=== PATIENT | male | born 1955 | race Caucasian/White ===

== ENCOUNTER 2016-08-26 13:43 | Emergency (ER) | payer OTHER ==
[~2016-08-26] VITALS: Ht 182.9 cm; Wt 114.4 kg
[2016-08-26 13:48] VITALS: BP 114/76; PULSE 90; RESP 15; O2SAT 98
[2016-08-26 14:20] LABS: BASOPHILS % (AUTO) 0.6 % (0-3); EOSINOPHILS % (AUTO) 2.6 % (0-5); MONOCYTES % (AUTO) 6.8 % (4-12); Mean Corpuscular Hemoglobin 31.8 pg (27.0-35.0); Mean Corpuscular Volume 92.4 fL (81-100); NEUTROPHILS % (AUTO) 68.1 % (40-74); Platelet Count 250 bil/L (150-400)
[2016-08-26 15:08] VITALS: BP 137/87; PULSE 87; RESP 18; O2SAT 98
--- NOTE | 2016-08-26 15:10 | ED.REPORT ---
HPI-General Illness Date of Service Aug 26, 2016 ED Provider: Herman Sarabia MD Patient is a 61 year old male with a history of type 2 diabetes mellitus and previous remote brain aneurysm who presents to the ED with lightheadedness that began 1 hour prior to arrival. Patient was at work when his symptoms began. Associated symptoms include dizziness, diaphoresis, SOB, "tunnel vision" and pallor. Patient denies any symptoms prior to symptoms onset 1 hour ago. Current medication list includes 10 units of insulin per day, metformin and glyburide. Patient did not take his insulin today. He has been unable to take simvastatin, metformin or glyburide for the past 4 days due to running out. He denies any chest pain. He has been more thirsty than normal lately and has been urinating more than normal. thinks that he may be dehydrated. Sx worse with standing up quickly. Nursing Notes Stated Complaint: LIGHT HEADED Chief Complaint: General Complaint Nursing Notes Reviewed: Yes Allergies: Coded Allergies: No Known Allergies (Unverified , 08/26/16) General Time Seen by MD: 15:07 Chief Complaint Other (Lightheadedness) Hx Obtained From: Patient Arrived By: Walk-in Sudden in Onset?: No Onset Occurred: 1 - 4 hours ago Symptom Duration: Since onset Associated with: Reports: Diaphoresis, Dizziness, Shortness of breath, Vision change, Denies: Chest pain, Syncope Additional Notes: Pale Pertinent Negative: Pt denies other symptoms Recent Healthcare: No recent doctor visit, No recent hospitalization Past Medical History Past Surgical History Brain aneurysm repair Social History Other Social History: Good social support, , Local resident Ambulatory Status Independent Review of Systems Tunnel vision Full Review of Systems Respiratory: Reports: Shortness of breath Cardiovascular: Denies: Chest pain Skin: Reports Diaphoresis Neurologic: Reports: Dizziness, Lightheaded Complete sys rev & neg: except as marked. Physical Exam Vital Signs Vital Signs Date Time Temp Pulse Resp B/P Pulse Ox O2 Delivery O2 Flow Rate FiO2 08/26/16 18:57 36.9 70 18 152/90 96 Room Air 08/26/16 17:45 78 19 97 Room Air 08/26/16 16:13 78 15 149/100 97 Room Air 08/26/16 15:08 87 18 137/87 98 Room Air 08/26/16 13:48 36.9 90 15 114/76 98 Room Air Initial VS: Reviewed Neck: Supple, Non-tender, Full range of motion Skin: Warm, Dry, No cyanosis Psychiatric: Mood/affect normal, Behavior normal, Normal thought content General/Constitutional: Awake, Alert, No acute distress, Well appearing, Well developed Head / Eyes: Atraumatic, Normocephalic, PERRL ENT: Atraumatic, Airway patent Mouth: Positive: Mucous membranes dry Respiratory / Chest: Atraumatic, Breath sounds NL, Breath sounds = bilat, No respiratory distress Cardiovascular: Heart rate NL, Regular rhythm, Heart sounds NL, No gallop, No murmurs, No rubs Abdomen: Atraumatic, Soft, Non-tender Upper Extremities Upper Extremity / MS: Atraumatic, Inspection NL, Neurologic intact, Vascular intact Lower Extremity / Pelvis / MS: Atraumatic, Inspection NL, Neurologic intact, Vascular intact, No edema LOWER EXTREMITIES: No calf swelling or tenderness Neurologic: Oriented X3, Speech NL, No motor deficits, No sensory deficits, CN II - XII intact, Reflexes equal bilat NEURO: No pronator drift Interpretation & Diagnostics Lab Results Interpretation Result Diagram: 08/26/16 1408 08/26/16 1408 Test 08/26/16 14:08 08/26/16 15:45 08/26/16 16:05 White Blood Count 9.9th/mm3 (3.8-10.1) Red Blood Count 4.62mil/mm3 (4.40-5.80) Hemoglobin 14.7g/dL (13.8-17.2) Hematocrit 42.7% (41.0-50.0) Mean Corpuscular Volume 92.4fL (81-100) Mean Corpuscular Hemoglobin 31.8pg (27.0-35.0) Mean Corpuscular Hemoglobin Concent 34.4% (32.0-37.0) Red Cell Distribution Width 12.1% (12.3-15.4) Platelet Count 250bil/L (150-400) Neutrophils (%) (Auto) 68.1% (40-74) Lymphocytes (%) (Auto) 21.6% (14-46) Monocytes (%) (Auto) 6.8% (4-12) Eosinophils (%) (Auto) 2.6% (0-5) Basophils (%) (Auto) 0.6% (0-3) Sodium Level 134mEq/L (134-144) Potassium Level 4.8mEq/L (3.5-5.2) Chloride Level 97mEq/L (97-108) Carbon Dioxide Level 19mmol/L (18-29) Blood Urea Nitrogen 26mg/dL (8-27) Creatinine 1.08mg/dL (0.76-1.27) Estimat Glomerular Filtration Rate 74mL/min (>59) Glucose Level 543mg/dL (60-99) Calcium Level 9.6mg/dL (8.5-10.1) Total Bilirubin 0.2mg/dL (0.0-1.2) Aspartate Amino Transf (AST/SGOT) 21U/L (0-50) Alanine Aminotransferase (ALT/SGPT) 25U/L (0-44) Alkaline Phosphatase 85U/L (25-160) Total Protein 6.9g/dL (6.4-8.4) Albumin 4.1g/dL (3.4-5.0) Hold Wallace Top Tube Received (Received) Troponin T < 0.010ug/L (0.0-0.011) Hold Urine Received (Received) Point of Care Testing: Troponin normal ECG Interpretation ECG Interpretation: Sinus rhythm 84 Left axis deviation Incomplete LBBB No t wave abnormalities No prior for comparison 1528 Time: 14:28 Interpreted by: ED physician Re-Eval/Medical Decision Med Decision/Clinical Course Patient is a 61 year old male with a history of type 2 diabetes mellitus and previous remote brain aneurysm who presents to the ED with lightheadedness that began 1 hour prior to arrival. Patient was at work when his symptoms began. Associated symptoms include dizziness, diaphoresis, SOB, "tunnel vision" and pallor. Patient denies any symptoms prior to symptoms onset 1 hour ago. Current medication list includes 10 units of insulin per day, metformin and glyburide. Patient did not take his insulin today. He has been unable to take simvastatin, metformin or glyburide for the past 4 days due to running out. He denies any chest pain. He has been more thirsty than normal lately and has been urinating more than normal. thinks that he may be dehydrated. Sx worse with standing up quickly. Here in ED pt is afebrile with stable VS. Appears slightly dehydrated. Clinically positive orthostatic vital signs. Pt was treated with the below medications: 2 IV fluids 20 units of insulin LABS CBC unremarkable CMP unremarkable except glucose 533 Negative Troponin EKG Sinus rhythm 84 Left axis deviation Incomplete LBBB No t wave abnormalities No prior for comparison Overall presentation seems consistent with dehydration in the setting of noncompliance with his diabetes regimen causing increased hyperglycemia and osmotic diuresis in the setting of very high temperatures outside as well. After receiving IV insulin and fluids the patient's hyperglycemia significantly improved. He was able to tolerate PO and reported feeling much better. EKG demonstrates no acute ischemic changes and initial screening troponin is negative. He has good renal function and no significant electrolyte abnormalities. Presentation not consistent with intracranial hemorrhage or stroke. I feel that the patient is appropriate for discharge. He is now filled his diabetes medications and will start taking them again. He is advised to follow-up first thing next week with his primary care physician and keep a log of his blood sugars. Prior to discharge follow-up and return precautions were reviewed in detail with the patient who verbalized understanding and agreement with the plan. The patient was discharged in stable condition. Time of Eval: 17:23 Patient Status: Condition improved Re-Evaluation/Progress Note: Patient is rechecked. BG has improved following 20 units of insulin. He is informed of his results and diagnosis. He understands and agrees with the plan to discharge with follow up. Counseled Regarding: Diagnosis, Lab results, Need for follow-up, When/why to return to ED Discharge & Departure Primary Impression: Hyperglycemia Additional Impressions: Dehydration Lightheadedness Dizziness Disposition: Home Discharge Condition All VS Reviewed: Yes Condition: Improved Patient Instructions: Diabetic Hyperglycemia (ED) Additional Instructions: Thank you for seeking care at emergency room. It is difficult for us to make definitive diagnoses in the ED but we believe that the likely cause of your symptoms is hyperglycemia. Our primary goal today in the ED was to evaluate you for any life-threatening conditions. Your evaluation was reassuring. Continue to take home medications as prescribed including insulin and metformin. You should follow-up with your primary doctor in the next week. You should return to the ED immediately if you develop high fever, vomiting, cough, shortness of breath, chest pain, lightheadedness, weakness or any other concerning signs or symptoms. Thank you for letting us partake in your care today. Referrals: Carleen Dutta MD (PCP) Scribe Attestation Portions of this note were transcribed by Carlos Sofia. I, Dr. Sarabia personally performed the history, physical exam and medical decision-making; I reviewed and confirmed the accuracy of the information in the transcribed note. Signed by: Richardson Carrizales, 08/26/16 1830. copies to: Carleen Dutta MD, Beck O MD Aug 26, 2016 15:10 CARLOS SOFIA Aug 26, 2016 15:20
[2016-08-26] MEDS ORDERED: 0.9% Sodium Chloride 1,000 ML IV ONE (15:25)
[2016-08-26] MEDS ORDERED: (U-500) Insulin Regluar, Human 500 Unit/mL Syringe SUBQ STA ×2 (15:25→17:22)
[2016-08-26] MEDS ORDERED: Insulin Human REGular-Omnicell 100 Unit/mL SUBQ ONE ×2 (15:40→17:40)
[2016-08-26 16:13] VITALS: BP 149/100; PULSE 78; RESP 15; O2SAT 97
[2016-08-26 17:45] VITALS: PULSE 78; RESP 19; O2SAT 97
[2016-08-26 18:57] VITALS: BP 152/90; PULSE 70; RESP 18; O2SAT 96
== END 2016-08-26 18:59 | disposition home or self-care (01) ==
LOC: SED 13:43
DX: E11.65 Type 2 diabetes mellitus with hyperglycemia (principal); E86.0 Dehydration; R42 Dizziness and giddiness; R06.02 Shortness of breath; Z79.4 Long term (current) use of insulin; Z79.84 Long term (current) use of oral hypoglycemic drugs; Z91.14 Patient's other noncompliance with medication regimen
CPT/HCPCS: 36415; 80053; 82375; 82803; 82948; 84484; 85025; 93005; 96360; 96372; 99285; J1815; J7030